=== PATIENT | female | born 1935 | race Caucasian/White ===

== ENCOUNTER 2016-09-22 07:34 | Outpatient (CLI) | payer MEDICARE, BC, OTHER ==
[2016-09-22 13:09] LABS: BASOPHILS # (AUTO) 0.1 10^3/uL (0.0-0.1); BASOPHILS % (AUTO) 0.7 %; EOSINOPHILS # (AUTO) 0.1 10^3/uL (0.0-0.7); EOSINOPHILS % (AUTO) 0.9 %; HCT - HEMATOCRIT 40.9 % (37.0-47.0); HGB - HEMOGLOBIN 13.5 g/dL (12.0-16.0); LYMPHOCYTES # (AUTO) 1.3 10^3/uL (1.5-3.5); LYMPHOCYTES % (AUTO) 17.1 %; MEAN CORPUSCULAR HEMOGLOBIN 32.7 pg (27.0-31.0); MEAN CORPUSCULAR HGB CONC 33.1 g/dL (32.0-36.0); MEAN PLATELET VOLUME 10.3 fL (7.9-10.8); MONOCYTES # (AUTO) 0.8 10^3/uL (0.0-1.0); MONOCYTES % (AUTO) 10.3 %; NEUTROPHILS # (AUTO) 5.5 10^3/uL (1.5-6.6); NUCLEATED RED BLOOD CELLS AUTO 0.2 /100WBC; RED BLOOD COUNT 4.14 10^6/uL (4.20-5.40); RED CELL DISTRIBUTION WIDTH 13.8 % (12.0-15.0); UNCORRECTED WHITE BLOOD COUNT 7.7 x10^3/uL; WHITE BLOOD COUNT 7.7 x10^3/uL (4.8-10.8)
[2016-09-22 13:19] LABS: ALBUMIN/GLOBULIN RATIO 1.3 (1.0-2.2); BILIRUBIN,TOTAL 0.8 mg/dL (0.2-1.0); BUN - BLOOD UREA NITROGEN 13 mg/dL (6-20); CALCIUM 8.8 mg/dL (8.5-10.3); CARBON DIOXIDE - CO2 28 mmol/L (21-32); CHLORIDE 101 mmol/L (101-111); CHOL/HDL RATIO 2.7 (<4.4); CHOLESTEROL 101 mg/dL; CREATININE 0.5 mg/dL (0.4-1.0); GFR - MDRD 118 (>89); GLUCOSE 122 mg/dL (70-100); HDL CHOLESTEROL 37 mg/dL; LDL/HDL RATIO 1.3 (<4.4); POTASSIUM 3.7 mmol/L (3.5-5.0); SODIUM 138 mmol/L (135-145); TRIGLYCERIDES 82 mg/dL; VLDL CHOLESTEROL 16 mg/dL
== END 2016-09-22 07:35 | disposition home or self-care (01) ==
LOC: LAB.WCP 07:34
PROVIDERS: ATTEND Family Medicine
DX: E78.5 Hyperlipidemia, unspecified (principal); I48.91 Unspecified atrial fibrillation
CPT/HCPCS: 36415; 80053; 80061; 84443; 85025

== ENCOUNTER 2017-05-04 08:00 | Outpatient (CLI) | payer MEDICARE, BC, OTHER ==
[2017-05-04 13:34] LABS: HB2 TOTAL 16.3 g/dL; HEMOGLOBIN A1C 0.62 g/dL; HEMOGLOBIN A1C % 5.6 % (4.6-6.2)
[2017-05-04 13:36] LABS: ALBUMIN 3.9 g/dL (3.2-5.5); ALBUMIN/GLOBULIN RATIO 1.3 (1.0-2.2); ALKALINE PHOSPHATASE 69 IU/L (42-121); ALT ALANINE AMINOTRANSFERASE 21 IU/L (10-60); AST ASPARTATE AMINOTRANSFERASE 28 IU/L (10-42); BILIRUBIN,TOTAL 1.1 mg/dL (0.2-1.0); BUN - BLOOD UREA NITROGEN 14 mg/dL (6-20); CALCIUM 8.7 mg/dL (8.5-10.3); CARBON DIOXIDE - CO2 28 mmol/L (21-32); CHLORIDE 98 mmol/L (101-111); CHOLESTEROL 128 mg/dL; CREATININE 0.6 mg/dL (0.4-1.0); GFR - MDRD 95 (>89); GLUCOSE 138 mg/dL (70-100); HDL CHOLESTEROL 43 mg/dL; LDL CHOLESTEROL,CALCULATED 65 mg/dL; LDL/HDL RATIO 1.5 (<4.4); SODIUM 136 mmol/L (135-145); VLDL CHOLESTEROL 20 mg/dL
== END 2017-05-04 08:01 | disposition home or self-care (01) ==
LOC: LAB.WCP 08:00
PROVIDERS: ATTEND Family Medicine
DX: I48.91 Unspecified atrial fibrillation (principal); I10 Essential (primary) hypertension; R73.01 Impaired fasting glucose
CPT/HCPCS: 36415; 80053; 80061; 83036; 83721; 85025

== ENCOUNTER 2017-05-12 14:17 | Outpatient (CLI) | payer MEDICARE, BC, OTHER ==
--- NOTE | 2017-05-12 19:11 | Ultrasound Report ---
RIGHT BREAST ULTRASOUND: 05/12/2017 CLINICAL INDICATION: Palpable abnormality right upper inner quadrant. TECHNIQUE: Real-time scanning was performed with uniforms sales representative static images obtained. FINDINGS: Ultrasound of the palpable abnormality identified by the patient was performed. At the 1 o'clock position of the right breast, 10 cm from the nipple, there is a 3.9 x 3.5 x 1.5 cm fluid collection posterior to the breast tissue and anterior to the ribs, compatible with a hematoma. No sonographically suspicious findings are identified. IMPRESSION: PROBABLE BENIGN HEMATOMA CORRELATING WITH THE PALPABLE ABNORMALITY. RECOMMENDATION: Right breast ultrasound in 6 months, to evaluate for resolution. BIRADS category: 3, probable benign findings. TD: 05/12/2017 19:10
--- NOTE | 2017-05-12 19:11 | Mammography Report ---
DIGITAL DIAGNOSTIC BILATERAL MAMMOGRAM: 05/12/2017 CLINICAL INDICATION: Palpable abnormality right breast. TECHNIQUE: Bilateral CC, MLO, right true lateral views. COMPARISON: 03/23/2014, 10/02/2012, 10/01/2011, 09/16/2010, 08/29/2009. FINDINGS: A marker was placed at the site of palpable abnormality identified by the patient. As on previous examinations, positioning on the patient's right side is markedly limited by the patient's previous stroke and lack of mobility. The breasts demonstrate scattered fibroglandular densities bilaterally. No suspicious masses, clustered microcalcifications, or regions of architectural distortion are identified. The palpable abnormality identified by the palpation in the right upper inner quadrant could not be pulled into the field of view, due to positioning limitations. Please also refer to right breast ultrasound of the same day. IMPRESSION: PROBABLE BENIGN FINDINGS, WITH A 3.5 CM HEMATOMA CORRELATING WITH THE PALPABLE ABNORMALITY ON ULTRASOUND. RECOMMENDATIONS: Right breast ultrasound in 6 months, to evaluate resolution. BIRADS category: 3, probable benign findings. STANDARD QUALIFYING STATEMENTS 1. This examination was reviewed with the aid of Computed-Aided Detection (CAD). 2. A negative or benign imaging report should not delay biopsy if clinically suspicious findings are present. Consider surgical consultation if warranted. More than 5% of cancers are not identified by imaging. 3. Dense breasts may obscure an underlying neoplasm. TD: 05/12/2017 19:08
== END 2017-05-12 14:18 | disposition home or self-care (01) ==
LOC: DI 14:17
PROVIDERS: ATTEND Family Medicine
DX: N64.89 Other specified disorders of breast (principal)
CPT/HCPCS: 76642; 77066

== ENCOUNTER 2018-03-03 11:57 | Outpatient (CLI) | payer MEDICARE, BC, OTHER ==
[2018-03-03 19:12] LABS: BASOPHILS # (AUTO) 0.1 10^3/uL (0.0-0.1); BASOPHILS % (AUTO) 0.7 %; EOSINOPHILS # (AUTO) 0.1 10^3/uL (0.0-0.7); EOSINOPHILS % (AUTO) 0.7 %; HGB - HEMOGLOBIN 14.5 g/dL (12.0-16.0); LYMPHOCYTES # (AUTO) 1.7 10^3/uL (1.5-3.5); LYMPHOCYTES % (AUTO) 20.4 %; MEAN CORPUSCULAR HEMOGLOBIN 32.8 pg (27.0-31.0); MEAN CORPUSCULAR HGB CONC 32.4 g/dL (32.0-36.0); MEAN CORPUSCULAR VOLUME 101.2 fL (81.0-99.0); MEAN PLATELET VOLUME 9.5 fL (7.9-10.8); MONOCYTES # (AUTO) 0.8 10^3/uL (0.0-1.0); MONOCYTES % (AUTO) 9.5 %; NEUTROPHILS # (AUTO) 5.7 10^3/uL (1.5-6.6); NEUTROPHILS % (AUTO) 68.7 %; PLT - PLATELET COUNT 280 10^3/uL (130-450); RED BLOOD COUNT 4.43 10^6/uL (4.20-5.40); WHITE BLOOD COUNT 8.3 x10^3/uL (4.8-10.8)
[2018-03-03 19:26] LABS: ALBUMIN 4.2 g/dL (3.2-5.5); ALBUMIN/GLOBULIN RATIO 1.6 (1.0-2.2); ALKALINE PHOSPHATASE 72 IU/L (42-121); ALT ALANINE AMINOTRANSFERASE 18 IU/L (10-60); AST ASPARTATE AMINOTRANSFERASE 25 IU/L (10-42); BILIRUBIN,TOTAL 0.9 mg/dL (0.2-1.0); BUN - BLOOD UREA NITROGEN 19 mg/dL (6-20); CALCIUM 9.1 mg/dL (8.5-10.3); CARBON DIOXIDE - CO2 27 mmol/L (21-32); CHLORIDE 96 mmol/L (101-111); CHOL/HDL RATIO 2.4 (<4.4); CHOLESTEROL 104 mg/dL; CREATININE 0.7 mg/dL (0.4-1.0); GFR - MDRD 80 (>89); GLUCOSE 115 mg/dL (70-100); HDL CHOLESTEROL 44 mg/dL; LDL CHOLESTEROL,CALCULATED 45 mg/dL; SODIUM 134 mmol/L (135-145); TOTAL PROTEIN 6.9 g/dL (6.7-8.2); VLDL CHOLESTEROL 15 mg/dL
[2018-03-03 19:49] LABS: HB2 TOTAL 15.9 g/dL; HEMOGLOBIN A1C 0.59 g/dL; HEMOGLOBIN A1C % 5.5 % (4.6-6.2)
== END 2018-03-03 23:59 | disposition home or self-care (01) ==
LOC: LAB.WCP 11:57
PROVIDERS: ATTEND Family Medicine
DX: I48.91 Unspecified atrial fibrillation (principal); R73.01 Impaired fasting glucose; E78.5 Hyperlipidemia, unspecified; J44.9 Chronic obstructive pulmonary disease, unspecified; I10 Essential (primary) hypertension; E04.1 Nontoxic single thyroid nodule
CPT/HCPCS: 36415; 80053; 80061; 83036; 83721; 84443; 85025

== ENCOUNTER 2018-03-24 10:27 | Outpatient (CLI) | payer MEDICARE, BC, OTHER ==
--- NOTE | 2018-03-24 11:54 | Ultrasound Report ---
Reason: BREAST HEMATOMA, BREAST LUMP OR MASS, RIGHT Procedure Date: 03/24/2018 Accession Number: [id number] / [id number] Procedure: US - Breast Unilateral Limited CPT Code: FULL RESULT: EXAM: Breast Unilateral Limited DATE: 03/24/2018 11:22 AM CLINICAL HISTORY: BREAST HEMATOMA, BREAST LUMP OR MASS, RIGHT COMPARISON: 05/12/2017. TECHNIQUE: Targeted ultrasound was performed of the right breast in the area of clinical concern at 1 o'clock position and including both upper quadrants surrounding the area of a previously seen fluid collection which has since resolved. Only normal breast tissue is identified. Color Doppler was employed as appropriate. FINDINGS: Normal breast tissue with interval resolution of previously seen collection. IMPRESSION: Negative examination RECOMMENDATION: Recommend routine annual Screening mammography unless otherwise clinically indicated. BIRADS CATEGORY 1: Negative RADIA
== END 2018-03-24 10:28 | disposition home or self-care (01) ==
LOC: DI 10:27
PROVIDERS: ATTEND Family Medicine
DX: N64.89 Other specified disorders of breast (principal); N63.10 Unspecified lump in the right breast, unspecified quadrant
CPT/HCPCS: 76642

== ENCOUNTER 2018-10-18 08:00 | Outpatient (CLI) | payer MEDICARE, BC, OTHER ==
[2018-10-18 19:15] LABS: BILIRUBIN,URINE NEGATIVE (NEGATIVE); GLUCOSE, URINE (UA) NEGATIVE (NEGATIVE); KETONES,URINE (UA) NEGATIVE (NEGATIVE); LEUKOCYTE ESTERASE, URINE NEGATIVE (NEGATIVE); NITRITE,URINE NEGATIVE (NEGATIVE); OCCULT BLOOD,URINE NEGATIVE (NEGATIVE); PH,URINE 7.5 PH (5.0-7.5); PROTEIN,URINE NEGATIVE (NEGATIVE); UROBILINOGEN,URINE 1 (NORMAL) E.U./dL (NORMAL)
[2018-10-18 19:17] LABS: CLARITY,URINE CLEAR (CLEAR)
== END 2018-10-18 23:59 | disposition home or self-care (01) ==
LOC: LAB.R 08:00
PROVIDERS: ATTEND Family Medicine
DX: R35.0 Frequency of micturition (principal)
CPT/HCPCS: 81001; 81003; 87086

== ENCOUNTER 2019-01-08 10:25 | Outpatient (CLI) | payer MEDICARE, BC, OTHER | END 2019-01-08 10:26 | disposition critical access hospital (66) | LOC: EMS 10:25 | PROVIDERS: ATTEND Surgery | DX: R53.81 Other malaise (principal) | CPT/HCPCS: A0425; A0429 ==

== ENCOUNTER 2019-01-08 10:46 | Inpatient (IN) | payer MEDICARE, BC, OTHER ==
--- NOTE | 2019-01-08 11:45 | ED Physician Documentation ---
PD HPI DYSPNEA - Stated complaint Stated Complaint: WEAKNESS - Chief complaint Chief Complaint: General - History obtained from History obtained from: Patient - History of Present Illness Timing - onset: How many weeks ago (1) Timing - onset during: Light activity Timing - duration: Weeks (1 Week or longer of feeling general weakness and malaise with some dyspnea the last couple of days. She is not aware of any chest pain. She does have history of atrial fibrillation but did not feel that her heart rate was going fast necessarily. She states she had not had her usual medications I believe over the last week or so. She states that they are at the pharmacy to be picked up.) Timing - details: Gradual onset, Still present Inciting event(s): Out of meds. No: URI Worsened by: No: Laying flat Associated symptoms: Bilateral edema (mild chronic). No: Fever, Cough, Chest pain / discomfort, Palpitations Recently seen: Not recently seen Review of Systems Constitutional: denies: Fever Nose: denies: Rhinorrhea / runny nose, Congestion Throat: denies: Sore throat Cardiac: denies: Chest pain / pressure Respiratory: reports: Dyspnea. denies: Cough Neurologic: reports: Generalized weakness. denies: Altered mental status, Headache PD PAST MEDICAL HISTORY - Past Medical History Cardiovascular: Atrial fibrillation Respiratory: COPD Neuro: CVA Endocrine/Autoimmune: None : Incontinence HEENT: Dental implants Psych: Anxiety Musculoskeletal: Osteoarthritis Derm: Other - Past Surgical History General: Appendectomy Ortho: Other /DREDGE [place]EMAN: section - Present Medications Home Medications: Ambulatory Orders Medication Instructions Recorded Confirmed Digoxin [Lanoxin] 125 mcg PO DAILY 01/05/13 10/25/15 Rivaroxaban [Xarelto] 20 mg PO DAILY 01/05/13 10/25/15 Tiotropium [Spiriva] 2 puffs INH DAILY 01/05/13 10/25/15 [id number] CD [Cardizem Cd] 240 mg PO DAILY 01/05/13 10/25/15 Fesoterodine Fumarate [Toviaz] 8 mg PO QPM 10/25/15 10/25/15 Metoprolol Tartrate 37.5 mg PO DAILY 10/25/15 10/25/15 Olopatadine HCl [Pataday] 2.5 ml OP DAILY PRN 10/25/15 10/25/15 Simvastatin 10 mg PO QPM 10/25/15 10/25/15 traMADol [Ultram] 50 mg PO QID PRN 10/25/15 10/25/15 Levofloxacin [Levaquin] 750 mg PO DAILY #3 tablet 10/26/15 - Allergies Allergies/Adverse Reactions: Allergies Allergy/AdvReac Type Severity Reaction Status Date / Time Penicillins AdvReac Unknown Rash Verified 01/08/19 10:53 - Social History Does the pt smoke?: No Smoking Status: Never smoker Does the pt drink ETOH?: Yes Does the pt have substance abuse?: No - Immunizations Immunizations are current?: Yes PD ED PE NORMAL - Vitals Vital signs reviewed: Yes - General General: Alert and oriented X 3, No acute distress, Well developed/nourished - HEENT HEENT: Moist mucous membranes, Pharynx benign - Neck Neck: Supple, no meningeal sign, No adenopathy - Cardiac Cardiac: No murmur. No: RRR (irregular and fast at 140s) - Respiratory Respiratory: No respiratory distress. No: Clear bilaterally (faint crackles at bases) - Abdomen Abdomen: Soft, Non tender - Back Back: No CVA TTP - Derm Derm: Normal color, Warm and dry - Extremities Extremities: No calf tenderness / cord, Other (2+ edema in both legs and ankles. ) - Neuro Neuro: Alert and oriented X 3. No: Normal speech (some deliberatation on speech. Answers yes/no better, c/w prior CVA. ) Eye Opening: Spontaneous Motor: Obeys Commands Verbal: Oriented GCS Score: 15 - Psych Psych: Normal mood Results - Vitals Vitals: Vital Signs - 24 hr 01/08/19 01/08/19 01/08/19 10:47 12:07 13:22 Temperature 36.4 C L 36.4 C L Heart Rate 89 144 H 123 H Respiratory 16 20 28 H Rate Blood Pressure 133/65 H 113/74 108/87 H O2 Saturation 97 98 96 Oxygen O2 Source Room air - EKG (time done) 11:40 Rate: Rate (enter#) (159) Rhythm: Atrial fibrillation [place]: Normal Ischemia: Normal ST segments, Non specific changes. No: ST elevation c/w ischemia, ST depression - Labs Labs: Laboratory Tests 01/08/19 01/08/19 01/08/19 11:44 11:44 11:44 WBC 9.3 RBC 4.79 Hgb 16.0 Hct 47.6 H MCV 99.4 H MCH 33.4 H MCHC 33.6 RDW 16.0 H Plt Count 152 MPV 12.5 H Neut # (Auto) 8.0 H Lymph # (Auto) 0.7 L [place] # (Auto) 0.6 Eos # (Auto) 0.0 Baso # (Auto) 0.0 Absolute Nucleated RBC 0.06 Nucleated RBC % 0.6 PT 19.5 H INR 1.8 H Sodium 134 L Potassium 4.1 Chloride 92 L Carbon Dioxide 25 Anion Gap 17.0 H BUN 47 H Creatinine 1.0 Estimated GFR (MDRD) 53 L Glucose 139 H Calcium 8.8 Magnesium Total Bilirubin 5.5 H AST 40 ALT 41 Alkaline Phosphatase 181 H Troponin I High Sens B-Natriuretic Peptide Total Protein 6.3 L Albumin 3.7 Globulin 2.6 Albumin/Globulin Ratio 1.4 Lipase 30 Last Dose Date Last Dose Time Digoxin 01/08/19 01/08/19 01/08/19 11:44 11:44 11:44 WBC RBC Hgb Hct MCV MCH MCHC RDW Plt Count MPV Neut # (Auto) Lymph # (Auto) [place] # (Auto) Eos # (Auto) Baso # (Auto) Absolute Nucleated RBC Nucleated RBC % PT INR Sodium Potassium Chloride Carbon Dioxide Anion Gap BUN Creatinine Estimated GFR (MDRD) Glucose Calcium Magnesium 2.4 Total Bilirubin AST ALT Alkaline Phosphatase Troponin I High Sens 93.2 H* B-Natriuretic Peptide 1382 H Total Protein Albumin Globulin Albumin/Globulin Ratio Lipase Last Dose Date Unknown Last Dose Time Unknown Digoxin < 0.2 - Rads (name of study) chest xray Radiology: Prelim report reviewed (some CHF/edema), See rad report PD MEDICAL DECISION MAKING - ED course Complexity details: considered differential (She states she has episodic A. fib in the past. She states she had run out of medicines this past week and they are at the pharmacy. I presume her feeling of weakness and some dyspnea are related to the fast rate A. fib with some congestive failure. We will give her medicines IV here for that to slow her down and some diuresing.), d/w patient Departure - Departure Disposition: ED Place in Observation Clinical Impression: Atrial fibrillation with rapid ventricular response, Generalized weakness CHF (congestive heart failure) Qualifiers: Heart failure type: unspecified Heart failure chronicity: unspecified Qualified Code(s): I50.9 - Heart failure, unspecified Condition: Stable Record reviewed to determine appropriate education?: Yes Discharge Date/Time: 01/08/19 15:05
[2019-01-08 11:56] LABS: BASOPHILS % (AUTO) 0.2 %; EOSINOPHILS % (AUTO) 0.2 %; LYMPHOCYTES # (AUTO) 0.7 10^3/uL (1.5-3.5); LYMPHOCYTES % (AUTO) 7.3 %; MEAN CORPUSCULAR HEMOGLOBIN 33.4 pg (27.0-31.0); MEAN CORPUSCULAR HGB CONC 33.6 g/dL (32.0-36.0); MEAN CORPUSCULAR VOLUME 99.4 fL (81.0-99.0); MEAN PLATELET VOLUME 12.5 fL (7.9-10.8); MONOCYTES # (AUTO) 0.6 10^3/uL (0.0-1.0); MONOCYTES % (AUTO) 6.2 %; NEUTROPHILS % (AUTO) 85.5 %; PLT - PLATELET COUNT 152 10^3/uL (130-450); RED BLOOD COUNT 4.79 10^6/uL (4.20-5.40); WHITE BLOOD COUNT 9.3 x10^3/uL (4.8-10.8)
[2019-01-08 12:00] LABS: INR 1.8 (0.8-1.2); PT - PROTHROMBIN TIME 19.5 secs (9.9-12.6)
[2019-01-08] MEDS ORDERED: ENOXAPARIN 60 MG/0.6 ML SYRINGE SUBQ STA (12:03)
[2019-01-08] MEDS ORDERED: METOPROLOL 5 MG/5 ML VIAL IVP STA ×3 (12:03→13:15)
[2019-01-08] MEDS ORDERED: DIGOXIN 500 MCG/2 ML AMP IVP STA ×2 (12:03→21:16)
[2019-01-08] MEDS ORDERED: SODIUM CHLORIDE 0.9% 1,000 ML IV ONE (12:04)
[2019-01-08 12:07] LABS: ALBUMIN 3.7 g/dL (3.2-5.5); ALBUMIN/GLOBULIN RATIO 1.4 (1.0-2.2); BILIRUBIN,TOTAL 5.5 mg/dL (0.2-1.0); CALCIUM 8.8 mg/dL (8.5-10.3); TOTAL PROTEIN 6.3 g/dL (6.7-8.2)
[2019-01-08 12:18] LABS: MAGNESIUM 2.4 mg/dL (1.7-2.8)
[2019-01-08 12:23] LABS: DIGOXIN < 0.2 ng/mL
--- NOTE | 2019-01-08 12:41 | XRAY Report ---
Reason: chest pain Procedure Date: 01/08/2019 Accession Number: [id number] / [id number] Procedure: XR - Chest 1 View X-Ray CPT Code: 09368 FULL RESULT: EXAM: CHEST RADIOGRAPHY EXAM DATE: 01/08/2019 12:12 PM. CLINICAL HISTORY: Chest pain. COMPARISON: CHEST 1 VIEW 10/25/2015 3:53 AM. TECHNIQUE: 1 view. FINDINGS: Lungs/Pleura: Mild vascular congestion. Bibasilar groundglass with mild blunting of the costophrenic angles. No pneumothorax. Mildly low lung volumes. Mediastinum: Cardiac silhouette size appears enlarged. Atherosclerotic vascular calcification. Other: Old right proximal humeral mild fracture deformity noted. IMPRESSION: 1. Mild bibasilar groundglass opacity with adjacent mild blunting of the costophrenic angles. This may represent a combination of atelectasis, edema, infection, and adjacent small effusions. 2. Mildly low lung volumes with mild vascular congestion. 3. Enlarged cardiac silhouette size. RADIA
[2019-01-08] MEDS ORDERED: FUROSEMIDE 20 MG/2 ML VIAL IVP STA (12:56)
[2019-01-08] MEDS ORDERED: diltiaZEM INJ 5 MG/ML VIAL IVP STA (13:27)
[2019-01-08] MEDS ORDERED: SODIUM CHLORIDE FLUSH 0.9% 10 ML SYRINGE IVP PRN (13:33)
[2019-01-08] MEDS ORDERED: ONDANSETRON 4 MG/2 ML VIAL IVP PRN (13:33)
--- NOTE | 2019-01-08 14:13 | HISTORY & PHYSICAL EXAMINATION ---
Chief Complaint - Chief Complaint Chief Complaint: Weakness History of Present Illness - Admitted From Admitted From:: Home - History Obtained From Records Reviewed: Yes History obtained from: Patient, ER Physician - History of Present Illness HPI Comment/Other: This is a 83 year old female with a past medical history significant for chronic atrial fibrillation (on Xarelto), prior CVA with residual right sided weakness who presents from home via EMS after feeling weak. She states she cannot recall how long she has been weak for but today she and her decided to call 911. She reports no chest pain or dyspnea. She feels she has been a little more forgetful. She has not taken any of her medications in 2.5 weeks and she does not know why. When asked if she ran out of her medications, she says that she has and she was planning to pick some up tomorrow. Reports no fever, chills, abdominal pain, dysuria, urgency. She reports no worsening of her chronic right lower extremity edema which began after he stroke. She reports her right side is weak at baseline after stroke that was over 30 years. She does not have feel weaker on that side more than usual. In the emergency department, she was found to be in atrial fibrillation with heart rate in the 130's. She was not hypoxic but was tachypnic in the 20's. She received multiple doses of Metoprolol IV without improvement in her heart rate. A x-ray was performed which was concerning for mild pulmonary vascular congestion. She then received Digoxin IV and Cardizem IV with improvement of her heart rates into the low 100's. Her troponin was found to be elevated as well as her BNP. She well be admitted for further management. We did discuss goals of care and she would like to be a full code. History - Past Medical History Cardiovascular: reports: Atrial fibrillation Respiratory: reports: COPD Neuro: reports: CVA Endocrine/Autoimmune: reports: None : reports: Incontinence HEENT: reports: Dental implants Psych: reports: Anxiety Musculoskeletal: reports: Osteoarthritis Derm: reports: Other MRSA Hx?: No - Past Surgical History General: reports: Appendectomy Ortho: reports: Other /COOK CHEF: reports: section - Family & Social History Family History Comment/Other: She reports her father from cardiac problems. Her grandmother and aunts also had cardiac conditions. Living arrangement: At home Living Situation: With spouse/s.o. Social History Notes: She lives at home with her . She does not smoke. Drinks ocassional alcohol. Has lived on [facility] since [facility]. 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 - Substance History Use: Uses substance without health or social issues: NONE Meds/Allgy - Home Medications Home Medications: Ambulatory Orders Medication Instructions Recorded Confirmed Digoxin [Lanoxin] 125 mcg PO DAILY 01/05/13 10/25/15 Rivaroxaban [Xarelto] 20 mg PO DAILY 01/05/13 10/25/15 Tiotropium [Spiriva] 2 puffs INH DAILY 01/05/13 10/25/15 diltiaZEM CD [Cardizem Cd] 240 mg PO DAILY 01/05/13 10/25/15 Fesoterodine Fumarate [Toviaz] 8 mg PO QPM 10/25/15 10/25/15 Metoprolol Tartrate 37.5 mg PO DAILY 10/25/15 10/25/15 Olopatadine HCl [Pataday] 2.5 ml OP DAILY PRN 10/25/15 10/25/15 Simvastatin 10 mg PO QPM 10/25/15 10/25/15 traMADol [Ultram] 50 mg PO QID PRN 10/25/15 10/25/15 Levofloxacin [Levaquin] 750 mg PO DAILY #3 tablet 10/26/15 - Allergies Allergies/Adverse Reactions: Allergies Allergy/AdvReac Type Severity Reaction Status Date / Time Penicillins AdvReac Unknown Rash Verified 01/08/19 10:53 Review of Systems - Constitutional Constitutional: reports: Fatigue, Weakness. denies: Fever, Chills - Eyes Eyes: denies: Pain, Blurred vision, Vision loss - Cardiovascular Cariovascular: reports: Edema. denies: Palpitations, Chest pain, Exertional dyspnea, Decr. exercise tolerance - Respiratory Respiratory: denies: SOB at rest, SOB with exertion - Gastrointestinal Gastrointestinal: denies: Abdominal pain, Nausea, Vomiting - Genitourinary Genitourinary: denies: Dysuria, Frequency, Urgency - Musculoskeletal Musculoskeletal: reports: Limited range of motion - Integumentary Integumentary: denies: Rash - Neurological Neurological: reports: General weakness, Memory problems. denies: Focal weakness, Numbness - All Other Systems All Other Systems: reports: Reviewed and negative Prior Level of Functionality: Lives at home with her . Has residual right sided weakness after CVA. Amb ulates with walker or cane at baseline. Exam - Vital Signs Reviewed Vital Signs: Yes Vital Signs: Vital Signs x48h Temp Pulse Resp BP Pulse Ox 01/08/19 13:22 36.4 C L 123 H 28 H 108/87 H 96 01/08/19 12:07 144 H 20 113/74 98 01/08/19 10:47 36.4 C L 89 16 133/65 H 97 - Physical Exam General Appearance: positive: No acute distress, Alert Eyes Bilateral: positive: Other (Her conjucive appear mildly injected and there is water discharge noted bilaterally.) ENT: positive: ENT inspection nml Neck: positive: Nml inspection Respiratory: positive: Rales, Other (Tachypnic.). negative: No respiratory distress, Breath sounds nml Cardiovascular: positive: Irregularly irregular, Tachycardia. negative: Systolic murmur, Diastolic murmur Abdomen: positive: Non-tender, Nml bowel sounds, No distention. 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 negative: Motor nml, Disoriented to person, Disoriented to place, Disoriented to time Conclusion/Plan - Problem List (1) Acute on chronic heart failure with preserved ejection fraction Conclusion/Plan: She appears slightly hypervolemic on exam and her BNP is elevated as well as her x-ray is suggestive of pulmonary vascular congestion. Last echo showed a preserved EF and unable to assess her diastolic dysfunction given her atrial fibrillation but suspect she has diastolic dysfunction. Will resume her home Metoprolol and diurese with IV Lasix as tolerated. Check Echo and daily weights. Trend troponin. (2) Atrial fibrillation with rapid ventricular response Conclusion/Plan: She has chronic atrial fibrillation and likely went into RVR secondary to medication noncompliance. Likely the cause of her weakness. Now rate controlled after receiving IV pushes in the ER. Will resume her home Xarelto and rate control medications as her blood pressure tolerates. (3) Elevated troponin Conclusion/Plan: Her troponin is elevated in the 90s but her EKG appears unchanged compared to prior and she reports no chest pain. Suspect likely demand ischemia given her heart failure. Will continue Xarelto and trend troponin. (4) Total bilirubin, elevated Conclusion/Plan: Etiology not clear. LFT's otherwise unremarkable. INR is elevated but may be from Xarelto. Trend LFT's and consider ultrasound of liver. (5) History of cerebrovascular accident (CVA) with residual deficit Conclusion/Plan: Stable. Has residual right sided deficits which are at baseline. Will continue Xarelto and statin. (6) COPD (chronic obstructive pulmonary disease) Conclusion/Plan: Stable. Duoneb PRN. - Lab Results Lab results reviewed: Yes Fish Bones: 01/08/19 11:44 01/08/19 11:44 - Diagnostic Imaging Results Diagnostic Imaging Results: positive: Final report reviewed - EKG Results EKG Interpreted Independently: Yes EKG Comparison: Unchanged from prior EKG EKG Findings: Atrial fibrillation w/ RVR. T wave inversions in II, II, aVF. Core Measures - Anticipated LOS I expect patient to be DC'd or transferred within 96 hours.: Yes - Issues Hospital Issues and Management Plan: Atrial fibrillation w/ RVR and acute on chronic heart failure requiring diuresis.
[2019-01-08] MEDS: SODIUM CHLORIDE FLUSH 0.9% 10 ML SYRINGE IVP SCH ×2 (17:34→23:40)
[2019-01-08] MEDS ORDERED: IPRATROPIUM/ALBUTEROL 3 ML NEB INH PRN (17:57)
[2019-01-08] MEDS ORDERED: ATORVASTATIN 10 MG TABLET PO SCH (21:00)
[2019-01-08] MEDS ORDERED: traMADol 50 MG TABLET PO PRN (23:59)
[2019-01-09] MEDS: METOPROLOL TARTRATE 25 MG TABLET PO SCH ×2 (00:05→08:30)
[2019-01-09 06:10] LABS: BASOPHILS % (AUTO) 0.2 %; EOSINOPHILS % (AUTO) 0.2 %; HGB - HEMOGLOBIN 15.3 g/dL (12.0-16.0); LYMPHOCYTES # (AUTO) 0.7 10^3/uL (1.5-3.5); LYMPHOCYTES % (AUTO) 7.4 %; MEAN CORPUSCULAR HGB CONC 32.8 g/dL (32.0-36.0); MEAN CORPUSCULAR VOLUME 100.6 fL (81.0-99.0); MEAN PLATELET VOLUME 12.4 fL (7.9-10.8); MONOCYTES # (AUTO) 0.6 10^3/uL (0.0-1.0); MONOCYTES % (AUTO) 6.6 %; NEUTROPHILS % (AUTO) 85.2 %; PLT - PLATELET COUNT 155 10^3/uL (130-450); RED BLOOD COUNT 4.63 10^6/uL (4.20-5.40); RED CELL DISTRIBUTION WIDTH 16.5 % (12.0-15.0); WHITE BLOOD COUNT 9.4 x10^3/uL (4.8-10.8)
[2019-01-09 06:28] LABS: ALBUMIN 3.3 g/dL (3.2-5.5); BILIRUBIN,DIRECT 2.1 mg/dL (0.1-0.5); BILIRUBIN,TOTAL 4.7 mg/dL (0.2-1.0); CREATININE 0.8 mg/dL (0.4-1.0); MAGNESIUM 2.2 mg/dL (1.7-2.8); TOTAL PROTEIN 5.7 g/dL (6.7-8.2)
[2019-01-09 06:32] LABS: GLUCOSE, URINE (UA) NEGATIVE (NEGATIVE); KETONES,URINE (UA) NEGATIVE (NEGATIVE); LEUKOCYTE ESTERASE, URINE NEGATIVE (NEGATIVE); NITRITE,URINE NEGATIVE (NEGATIVE); OCCULT BLOOD,URINE TRACE-LYSE (NEGATIVE); PH,URINE 5.5 PH (5.0-7.5); PROTEIN,URINE 30 mg/dL (NEGATIVE); UROBILINOGEN,URINE 1 (NORMAL) E.U./dL (NORMAL)
[2019-01-09 06:33] LABS: CLARITY,URINE CLEAR (CLEAR)
[2019-01-09 06:37] LABS: BILIRUBIN,URINE MODERATE (NEGATIVE); ICTOTEST,URINE POSITIVE
[2019-01-09 06:43] LABS: AMORPHOUS SEDIMENT,UR Few /LPF; BACTERIA,URINE Rare /HPF (None Seen); CASTS, URINE 0-2 Hyaline Casts /LPF; RBC,URINE None Seen /HPF (0-5); SQUAMOUS EPITHELIAL CELL,UR FEW Squamous (<= Few)
[2019-01-09 06:52] LABS: FOLATE 9.16 ng/mL (5.90 - >24.8)
[2019-01-09] MEDS: SODIUM CHLORIDE FLUSH 0.9% 10 ML SYRINGE IVP SCH ×2 (08:32→16:25)
[2019-01-09] MEDS ORDERED: FUROSEMIDE 20 MG/2 ML VIAL IVP SCH ×2 (09:00)
[2019-01-09] MEDS ORDERED: DIGOXIN 125 MCG TABLET PO SCH (09:00)
[2019-01-09] MEDS ORDERED: diltiaZEM 30 MG TABLET PO SCH (12:00)
[2019-01-09] MEDS ORDERED: DIGOXIN 500 MCG/2 ML AMP IVP ONE (14:30)
--- NOTE | 2019-01-09 15:16 | PROVIDER PROGRESS NOTE ---
Subjective - Prog Note Date Prog Note Date: 01/09/19 - Subjective Pt reports feeling: Worse Subjective: pt seems more confused today. but pt denies chest pain, palpitation. Pt's HR is controlled around between 103-116 in tele strip. ECHO reveals new EF 40-45% with normal right heart pressure. I called pt's to report pt's poor medical condition as far we found, acute systolic heart failure, elevated troponin, uncontrolled Afib with RVR, and lower blood pressure. Her medical conditions could deteriorate. pt's still request full code for his . He will come to hospital on tomorrow but we can call him and update his conditions. Current Medications - Current Medications Current Medications: Active Medications Albuterol/Ipratropium (Duoneb) 3 ml INH RTQID PRN PRN Reason: Shortness of Air/Wheezing Last Admin: 01/08/19 19:47 Dose: 3 ml Atorvastatin Calcium (Lipitor) 10 mg PO QPM [facility] Last Admin: 01/08/19 22:10 Dose: 10 mg Digoxin (Lanoxin) 125 mcg PO DAILY [facility] Last Admin: 01/09/19 08:31 Dose: 125 mcg Furosemide (Lasix Inj 20mg Vial) 20 mg IVP DAILY [facility] Metoprolol Tartrate (Lopressor) 25 mg PO BID [facility] Last Admin: 01/09/19 08:30 Dose: 25 mg Patient Own Med ( Fesoterodine Fumarate [Toviaz] 8 Mg) 1 each PO QPM MARIYA Rivaroxaban (Xarelto) 20 mg PO QDDINNER [facility] Sodium Chloride (Normal Saline Flush 0.9%) 10 ml IVP PRN PRN PRN Reason: NEEDED PER PROVIDER ORDERS Last Admin: 01/08/19 22:12 Dose: 10 ml Sodium Chloride (Normal Saline Flush 0.9%) 10 ml IVP 0100,0900,1700 [facility] Last Admin: 01/09/19 08:32 Dose: 10 ml Tramadol HCl (Ultram) 50 mg PO Q6H PRN PRN Reason: PAIN Last Admin: 01/09/19 00:19 Dose: 50 mg Digoxin [Lanoxin] 125 mcg PO DAILY 01/05/13 Rivaroxaban [Xarelto] 20 mg PO DAILY 01/05/13 [id number] CD [Cardizem Cd] 240 mg PO DAILY 01/05/13 Fesoterodine Fumarate [Toviaz] 8 mg PO QPM 10/25/15 Metoprolol Tartrate 37.5 mg PO DAILY 10/25/15 Simvastatin 10 mg PO QPM 10/25/15 traMADol [Ultram] 50 mg PO QID PRN 10/25/15 Tiotropium [place] [Spiriva Respimat] 2 puffs PO DAILY 01/09/19 Objective - Vital Signs/Intake & Output Reviewed Vital Signs: Yes Vital Signs: Vital Signs x48h Temp Pulse Pulse Resp BP BP BP 01/09/19 14:45 104 H 01/09/19 11:44 84/43 L 01/09/19 11:43 36.4 C L 120 H 18 99/72 84/43 L 01/09/19 09:30 126 H 103/48 L 01/09/19 08:30 105/63 01/09/19 08:25 35.5 C L 71 18 105/63 Pulse Ox 01/09/19 14:45 01/09/19 11:44 01/09/19 11:43 90 L 01/09/19 09:30 01/09/19 08:30 01/09/19 08:25 97 Intake & Output: Intake & Output 01/06/19 01/07/19 01/08/19 01/09/19 23:59 23:59 23:59 23:59 Intake Total 990 250 Output Total 80 150 Balance 910 100 - Objective General Appearance: positive: Alert, Mild distress. negative: Lethargic Eyes Bilateral: positive: Normal inspection, PERRL, No lid inflammation, Conjunctivae nml - Lab Results Fish Bones: 01/09/19 05:55 01/09/19 05:55 Other Labs: Lab Results x24hrs 01/09/19 01/09/19 01/09/19 Range/Units 05:55 05:55 05:55 WBC 9.4 (4.8-10.8) x10^3/uL RBC 4.63 (4.20-5.40) 10^6/uL Hgb 15.3 (12.0-16.0) g/dL Hct 46.6 (37.0-47.0) % MCV 100.6 H (81.0-99.0) fL MCH 33.0 H (27.0-31.0) pg MCHC 32.8 (32.0-36.0) g/dL RDW 16.5 H (12.0-15.0) % Plt Count 155 (130-450) 10^3/uL MPV 12.4 H (7.9-10.8) fL Neut # (Auto) 8.0 H (1.5-6.6) 10^3/uL Lymph # (Auto) 0.7 L (1.5-3.5) 10^3/uL [place] # (Auto) 0.6 (0.0-1.0) 10^3/uL Eos # (Auto) 0.0 (0.0-0.7) 10^3/uL Baso # (Auto) 0.0 (0.0-0.1) 10^3/uL Absolute Nucleated RBC 0.06 x10^3/uL Nucleated RBC % 0.6 /100WBC Sodium 130 L (135-145) mmol/L Potassium 3.9 (3.5-5.0) mmol/L Chloride 94 L (101-111) mmol/L Carbon Dioxide 23 (21-32) mmol/L Anion Gap 13.0 (6-13) BUN 44 H (6-20) mg/dL Creatinine 0.8 (0.4-1.0) mg/dL Estimated GFR (MDRD) 68 L (>89) Glucose 147 H (70-100) mg/dL Calcium 8.0 L (8.5-10.3) mg/dL Magnesium 2.2 (1.7-2.8) mg/dL Total Bilirubin 4.7 H (0.2-1.0) mg/dL Direct Bilirubin 2.1 H (0.1-0.5) mg/dL AST 67 H (10-42) IU/L ALT 38 (10-60) IU/L Alkaline Phosphatase 165 H (42-121) IU/L Troponin I High Sens (2.3-14.8) pg/mL B-Natriuretic Peptide (5-100) pg/mL Total Protein 5.7 L (6.7-8.2) g/dL Albumin 3.3 (3.2-5.5) g/dL Globulin 2.4 (2.1-4.2) g/dL Vitamin B12 911 (180-914) pg/mL Folate 9.16 (5.90 - >24.8) ng/mL Urine Color Urine Clarity (CLEAR) Urine pH (5.0-7.5) PH Ur Specific [place] (1.002-1.030) Urine Protein (NEGATIVE) mg/dL Urine Glucose (UA) (NEGATIVE) mg/dL Urine Ketones (NEGATIVE) mg/dL Urine Occult Blood (NEGATIVE) Urine Nitrite (NEGATIVE) Urine Bilirubin (NEGATIVE) Urine Urobilinogen (NORMAL) E.U./dL Ur Leukocyte Esterase (NEGATIVE) Urine RBC (0-5) /HPF Urine WBC (0-5) /HPF Ur Squamous Epith Cells (<= Few) Amorphous Sediment /LPF Urine Bacteria (None Seen) /HPF Urine Casts /LPF Ur Microscopic Review Urine Culture Comments 01/09/19 01/09/19 01/08/19 Range/Units 05:55 00:31 06:15 WBC (4.8-10.8) x10^3/uL RBC (4.20-5.40) 10^6/uL Hgb (12.0-16.0) g/dL Hct (37.0-47.0) % MCV (81.0-99.0) fL MCH (27.0-31.0) pg MCHC (32.0-36.0) g/dL RDW (12.0-15.0) % Plt Count (130-450) 10^3/uL MPV (7.9-10.8) fL Neut # (Auto) (1.5-6.6) 10^3/uL Lymph # (Auto) (1.5-3.5) 10^3/uL [place] # (Auto) (0.0-1.0) 10^3/uL Eos # (Auto) (0.0-0.7) 10^3/uL Baso # (Auto) (0.0-0.1) 10^3/uL Absolute Nucleated RBC x10^3/uL Nucleated RBC % /100WBC Sodium (135-145) mmol/L Potassium (3.5-5.0) mmol/L Chloride (101-111) mmol/L Carbon Dioxide (21-32) mmol/L Anion Gap (6-13) BUN (6-20) mg/dL Creatinine (0.4-1.0) mg/dL Estimated GFR (MDRD) (>89) Glucose (70-100) mg/dL Calcium (8.5-10.3) mg/dL Magnesium (1.7-2.8) mg/dL Total Bilirubin (0.2-1.0) mg/dL Direct Bilirubin (0.1-0.5) mg/dL AST (10-42) IU/L ALT (10-60) IU/L Alkaline Phosphatase (42-121) IU/L Troponin I High Sens 156.4 H* (2.3-14.8) pg/mL B-Natriuretic Peptide 1695 H (5-100) pg/mL Total Protein (6.7-8.2) g/dL Albumin (3.2-5.5) g/dL Globulin (2.1-4.2) g/dL Vitamin B12 (180-914) pg/mL Folate (5.90 - >24.8) ng/mL Urine Color YELLOW Urine Clarity CLEAR (CLEAR) Urine pH 5.5 (5.0-7.5) PH Ur Specific [place] 1.020 (1.002-1.030) Urine Protein 30 H (NEGATIVE) mg/dL Urine Glucose (UA) NEGATIVE (NEGATIVE) mg/dL Urine Ketones NEGATIVE (NEGATIVE) mg/dL Urine Occult Blood TRACE-LYSE (NEGATIVE) Urine Nitrite NEGATIVE (NEGATIVE) Urine Bilirubin MODERATE H (NEGATIVE) Urine Urobilinogen 1 (NORMAL) (NORMAL) E.U./dL Ur Leukocyte Esterase NEGATIVE (NEGATIVE) Urine RBC None Seen (0-5) /HPF Urine WBC 0-3 (0-5) /HPF Ur Squamous Epith Cells FEW Squamous (<= Few) Amorphous Sediment Few /LPF Urine Bacteria Rare (None Seen) /HPF Urine Casts 0-2 Hyaline Casts /LPF Ur Microscopic Review INDICATED Urine Culture Comments NOT INDICATED Assessment/Plan - Problem List (1) Acute systolic heart failure Impression: 01/10 today ECHO reveals pt has EF at 40-35% with normal right heart pressure, continue increased BNP, with lower SBP at 84, afib with RVR around 103-116, continue elevated troponin, pt is more confused. reported and updated pt's poor medical conditions to pt's . pt's still request full code for pt. reconcile pt's home Xarelto. pt had INR 1.8. pt took Xarelto at home for her afib order third tropoin and EKG, now new troponin is pending order midodrive 2.5 mg tid now to help BP order IV of digoxin to help control of afib with RVR, since pt has lower BP continue lower dosage of Lasix since pt has fluid overload with BNP continue increased over 1600 from previous 500 at 2016, and pt has new diagnosis of systolic heart failure. pt has lower dosage Metoprolol, continue, since pt has new heart failure, elevated troponin and afib RVR. continue tele, vital, and lab monitor order daily weight (2) Atrial fibrillation with rapid ventricular response Conclusion/Plan: afib RVR is controlled now, HR is around 85-96 continue Digoxin, since pt's BP is lower, hold home cardizem now for lower BP. digoxin serum concentration is lower continue tele and vital monitor (3) NSTEM NM Conclusion/Plan: pt denies chest pain, but pt is more confused [place] [address], new EKG indicted ST reverted with new RBBB. pt is confused now. order Stat CT of head to r/o brain bleeding. if pt has no brain hemorrhage, will order Lovenox and aspirin called pt's , updated pt may have heart attack. pt's is willing pt can be transferred to any hospital after CT of head, will call other hospital to transfer pt (4) hypotension it may from pt's heart attack, now pt's BP is stable now at 112/53 continue tele and vital, closely monitor pt (5) Total bilirubin, elevated Conclusion/Plan: Etiology not clear. ultrasound of liver is pending (6) History of cerebrovascular accident (CVA) with residual deficit Conclusion/Plan: Stable. Has residual right sided deficits which are at baseline. Will continue Xarelto and statin. (7) COPD (chronic obstructive pulmonary disease) Conclusion/Plan: Stable. Duoneb PRN. (8) hyponatremia today pt's Na 130, worsen from yesterday 134, it may come from pt's hypervolumic, order lower dosage of Lasix, continue lab monitor (9) confused unclear etiology, order Stat CT of head, will followup. pt has NSTEM NM today, it may cause to have reduced perfusion for head will call other hospital transfer pt.
[2019-01-09] MEDS ORDERED: MIDODRINE 2.5 MG TABLET PO SCH (16:00)
[2019-01-09] MEDS ORDERED: IPRATROPIUM 0.2 MG/ML NEB INH SCH ×2 (17:00→18:00)
[2019-01-09] MEDS ORDERED: RIVAROXABAN 10 MG TABLET PO SCH ×2 (17:00)
[2019-01-09] MEDS ORDERED: ASPIRIN 325 MG TABLET PO SCH (20:00)
--- NOTE | 2019-01-09 20:07 | Discharge Plan ---
Discharge Plan Problem Reviewed?: Yes Disposition: 02 Transfer Acute Care Hosp Condition: Serious Diet: Regular Activity Restrictions: Activity as Tolerated No Smoking: If you smoke, Please STOP! Call for help. Follow-up with: Chastity Noble DO [Primary Care Provider] -
[2019-01-09] MEDS ORDERED: FESOTERODINE FUMARATE 8 MG PO SCH (21:00)
[2019-01-09 21:13] VITALS: BP 132/66
--- NOTE | 2019-01-09 21:23 | CT Report ---
Reason: confused Procedure Date: 01/09/2019 Accession Number: [id number] / [id number] Procedure: CT - HEAD WO CPT Code: FULL RESULT: EXAM: CT HEAD EXAM DATE: 01/09/2019 05:54 PM. CLINICAL HISTORY: Confused. COMPARISON: HEAD W/O 01/05/2013 8:53 PM. TECHNIQUE: Multiaxial CT images were obtained from the foramen magnum to the vertex. Reformats: Sagittal and coronal. IV contrast: None. In accordance with CT protocol optimization, one or more of the following dose reduction techniques were utilized for this exam: automated exposure control, adjustment of mA and/or KV based on patient size, or use of iterative reconstructive technique. FINDINGS: Parenchyma: There is a large area of chronic encephalomalacia and volume loss in the left frontal lobe, parietal lobe, temporal lobe and basal ganglia consistent with old large left MCA territory infarct. There is a small area of encephalomalacia in the right occipital lobe which appears unchanged. Negative for acute intracranial hemorrhage. There is no midline shift or mass-effect. Extraaxial Spaces: No subdural or epidural hematoma. Ventricles: Normal in size and position. Sinuses and Orbits: Imaged paranasal sinuses, orbits, and mastoids show no significant abnormality. Bones: Extra-axial calcification along anterior right cerebral convexity is unchanged. There is no fracture. Other: None. IMPRESSION: No interval change. Large chronic left MCA territory infarct with encephalomalacia. Small old right occipital lobe infarct unchanged. No acute process. RADIA
--- NOTE | 2019-01-09 22:10 | Ultrasound Report ---
Reason: elevated bili Procedure Date: 01/09/2019 Accession Number: [id number] / [id number] Procedure: US - Abdomen Limited CPT Code: FULL RESULT: EXAM: ABDOMEN ULTRASOUND LIMITED, RUQ EXAM DATE: 01/09/2019 09:00 PM. CLINICAL HISTORY: Elevated bili. COMPARISON: ABDOMEN LIMITED 10/25/2015 6:49 PM. TECHNIQUE: Real-time scanning was performed with static images obtained. FINDINGS: Liver: The lung for parenchyma is heterogeneous and mildly coarse. Liver measures 14.4. In the left lobe there is a slightly hypoechoic focus measuring 10 mm x 5 mm. This may be an area of focal fatty sparing. Also inferiorly in the left lower lobe there is an echogenic focus measuring 6 mm x 5 mm x 14 mm. This likely represents a small hemangioma. cm. Main portal vein flow: Hepatopetal. Gallbladder: Surgically resected. Biliary System: CBD measures 7 mm. No intrahepatic or extrahepatic ductal dilatation. Other: Right kidney measures 12.1 cm. Trace perinephric fluid. IMPRESSION: 1. Coarse heterogeneous architecture of the liver. Possible small hemangioma in the left lobe. 2. Prior cholecystectomy. 3. Minimal trace fluid contiguous with the right kidney. No hydronephrosis. RADIA
--- NOTE | 2019-01-10 07:33 | DISCHARGE SUMMARY ---
Discharge Summary Admit Date: 01/08/19 Discharge Date: 01/09/19 Discharging Provider: HOLLIDAY Primary Care Provider: Dr. Cuellar Condition at Discharge: Serious Discharge Disposition: 02 Transfer Acute Care Hosp Discharge Facility [facility]: [facility] - DIAGNOSES Admission Diagnoses: (1) Acute on chronic heart failure with preserved ejection fraction (2) Atrial fibrillation with rapid ventricular response (3) Elevated troponin (4) Total bilirubin, elevated (5) History of cerebrovascular accident (CVA) with residual deficit (6) COPD (chronic obstructive pulmonary disease) Discharge Diagnoses with Status of Each Condition: (1) Acute systolic heart failure New ECHO reveals reduced EF at 40-45%, reported to rail maintenance worker in [facility] for high level care (2) Atrial fibrillation with rapid ventricular response controlled and stable (3) NSTEM DC acute NSTEM DC. pt had dramatic elevated troponin level, changed EKG indicate NSTEM, and pt became confused. called to rail maintenance worker in [facility] for high level care. pt was accepted for high level of care. called and reported pt's updated medical conditions to pt's , he asked pt to be transferred for high level of care. pt was transferred for high level of care (4) hypotension resolved and stable (5) Total bilirubin, elevated stable, US of abdomen reveals unremarkable (6) History of cerebrovascular accident (CVA) with residual deficit stable (7) COPD (chronic obstructive pulmonary disease) stable (8) hyponatremia stale, pt was transferred for high level of care (9) confused CT of head was unremarkable for acute finding. (10) medical non-compliance pt has not taken any of her medications in 2.5 weeks and she does not know why - HPI History of Present Illness: refer from Dr. Fernandez's HPI on 01/08/19 This is a 83 year old female with a past medical history significant for chronic atrial fibrillation (on Xarelto), prior CVA with residual right sided weakness who presents from home via EMS after feeling weak. She states she cannot recall how long she has been weak for but today she and her decided to call 911. She reports no chest pain or dyspnea. She feels she has been a little more forgetful. She has not taken any of her medications in 2.5 weeks and she does not know why. When asked if she ran out of her medications, she says that she has and she was planning to pick some up tomorrow. Reports no fever, chills, abdominal pain, dysuria, urgency. She reports no worsening of her chronic right lower extremity edema which began after he stroke. She reports her right side is weak at baseline after stroke that was over 30 years. She does not have feel weaker on that side more than usual. In the emergency department, she was found to be in atrial fibrillation with heart rate in the 130's. She was not hypoxic but was tachypnic in the 20's. She received multiple doses of Metoprolol IV without improvement in her heart rate. A x-ray was performed which was concerning for mild pulmonary vascular congestion. She then received Digoxin IV and Cardizem IV with improvement of her heart rates into the low 100's. Her troponin was found to be elevated as well as her BNP. She well be admitted for further management. We did discuss goals of care and she would like to be a full code. - HOSPITAL COURSE Hospital Course: pt was admitted for weakness. pt was found to have afib with RVR, pulmonary edema in CXR, significant elevated BNP. pt was gently given diuretics for fluid overload from her acute heart failure, and digoxin for her afib with RVR. pt also developed hypotension. after treatment, pt's BP became normal arrange, and her HR was controlled. but pt became confused. CT of head was unremarkable for acute findings. [place] [address] reverse change in anterior leads, plus pt's clinically became confused. Pt likely had acute NSTEM DC. call was immediately made to rail maintenance worker in [facility]. pt was accepted by rail maintenance worker, and pt was transferred to [facility]. pt's was updated medical conditions, he requested pt to be transferred to high level of care. we did. The detail hospital course is as the following. 1) Acute systolic heart failure New ECHO reveals reduced EF at 40-45%, reported to rail maintenance worker in [facility] for high level care (2) Atrial fibrillation with rapid ventricular response controlled and stable (3) NSTEM DC acute NSTEM DC. pt had dramatic elevated troponin level, changed EKG indicate NSTEM, and pt became confused. called to rail maintenance worker in [facility] for high level care. pt was accepted for high level of care. called and reported pt's updated medical conditions to pt's , he asked pt to be transferred for high level of care. pt was transferred for high level of care (4) hypotension resolved and stable (5) Total bilirubin, elevated stable, US of abdomen reveals unremarkable (6) History of cerebrovascular accident (CVA) with residual deficit stable (7) COPD (chronic obstructive pulmonary disease) stable (8) hyponatremia stale, pt was transferred for high level of care (9) confused CT of head was unremarkable for acute finding. (10) medical non-compliance pt has not taken any of her medications in 2.5 weeks and she does not know why - ALLERGIES Allergies/Adverse Reactions: Allergies Allergy/AdvReac Type Severity Reaction Status Date / Time Penicillins AdvReac Unknown Rash Verified 01/08/19 10:53 - MEDICATIONS Home Medications: Ambulatory Orders Medication Instructions Recorded Confirmed Digoxin [Lanoxin] 125 mcg PO DAILY 01/05/13 01/09/19 Rivaroxaban [Xarelto] 20 mg PO DAILY 01/05/13 01/09/19 diltiaZEM CD [Cardizem Cd] 240 mg PO DAILY 01/05/13 01/09/19 Fesoterodine Fumarate [Toviaz] 8 mg PO QPM 10/25/15 01/09/19 Metoprolol Tartrate 37.5 mg PO DAILY 10/25/15 01/09/19 Simvastatin 10 mg PO QPM 10/25/15 01/09/19 traMADol [Ultram] 50 mg PO QID PRN 10/25/15 01/09/19 Tiotropium [place] [Spiriva 2 puffs PO DAILY 01/09/19 01/09/19 Respimat] - PHYSICAL EXAM AT DISCHARGE General Appearance: positive: No acute distress, Alert. negative: Lethargic Eyes Bilateral: positive: Normal inspection, PERRL, No lid inflammation, Conjunctivae nml ENT: positive: ENT inspection nml, Pharynx nml, No signs of dehydration. nega tive: Purulent nasal drainage Neck: positive: Nml inspection, Thyroid nml, No JVD, Trachea midline. negative: Thyromegaly, Lymphadenopathy (R), Lymphadenopathy (L), Stiff neck, Tracheal deviation Respiratory: positive: Chest non-tender, No respiratory distress, Breath sounds nml. negative: Wheezes, Rales, Rhonchi Cardiovascular: positive: Regular rate & rhythm, No murmur, No gallop. negative: Irregularly irregular, Extrasystoles, Tachycardia, Bradycardia, JVD present, Systolic murmur, Diastolic murmur Peripheral Pulses: positive: 2+ Abdomen: positive: Non-tender, No organomegaly, Nml bowel sounds, No distention. negative: Tenderness, Guarding, Rebound Back: positive: Nml inspection. negative: CVA tenderness (R), CVA tenderness (L) Skin: positive: Color nml, No rash, Warm, Dry. negative: Cyanosis, Diaphoresis, Pallor Extremities: positive: Non-tender, Nml appearance. negative: Calf tenderness, Jabari's sign/cords Neurologic/Psychiatric: positive: Sensation nml. negative: Weakness, Sensory loss, Facial droop, Slurred/abnml speech, Depressed mood/affect - LABS Result Diagrams: 01/09/19 05:55 01/09/19 05:55 - FOLLOW UP Follow Up: transferred to [facility] for high level of care. - TIME SPENT Time Spent in Discharge (Minutes): 60
[2019-01-10] MEDS ORDERED: FUROSEMIDE 20 MG/2 ML VIAL IVP SCH (09:00)
== END 2019-01-09 21:35 | disposition short-term general hospital (02) | DRG 280 ==
LOC: ED 10:46 → MS2 13:33 → OBSVTOIN 01-09 12:27
PROVIDERS: ADMIT Internal Medicine; ATTEND Specialist
DX: I50.9 Heart failure, unspecified (principal); I21.4 Non-ST elevation (NSTEMI) myocardial infarction; I50.21 Acute systolic (congestive) heart failure; I48.20 Chronic atrial fibrillation, unspecified; R79.89 Other specified abnormal findings of blood chemistry; I69.951 Hemiplegia and hemiparesis following unspecified cerebrovascular disease affecting right dominant side; R41.3 Other amnesia; E87.1 Hypo-osmolality and hyponatremia; R17 Unspecified jaundice; I95.9 Hypotension, unspecified; J44.9 Chronic obstructive pulmonary disease, unspecified; I45.10 Unspecified right bundle-branch block; R32 Unspecified urinary incontinence; F41.9 Anxiety disorder, unspecified; M19.90 Unspecified osteoarthritis, unspecified site; R41.0 Disorientation, unspecified; Z79.01 Long term (current) use of anticoagulants; Z79.51 Long term (current) use of inhaled steroids; Z91.14 Patient's other noncompliance with medication regimen
CPT/HCPCS: 36415; 51701; 70450; 71045; 76705; 80048; 80053; 80076; 80162; 81001; 82607; 82746; 83690; 83735; 83880; 84484; 85025; 85610; 93005; 93306; 94640; 96361; 96374; 96375; 96376; 99284; 99285; A9270; G0378; J1650; 81003; 87086

== ENCOUNTER 2019-01-09 21:39 | Outpatient (CLI) | payer MEDICARE, BC, OTHER | END 2019-01-09 21:40 | disposition short-term general hospital (02) | LOC: EMS 21:39 | PROVIDERS: ATTEND Surgery | DX: I21.9 Acute myocardial infarction, unspecified (principal) | CPT/HCPCS: A0425; A0428 ==

== ENCOUNTER 2019-02-23 14:53 | Outpatient (CLI) | payer MEDICARE, BC, OTHER | END 2019-02-23 14:54 | disposition short-term general hospital (02) | LOC: EMS 14:53 | PROVIDERS: ATTEND Surgery | DX: Z74.1 Need for assistance with personal care (principal) | CPT/HCPCS: A0425; A0429 ==